=== PATIENT | female | born 2005 | race Caucasian/White ===

== ENCOUNTER 2024-12-12 18:17 | Emergency (ER) | payer OTHER, SELFPAY ==
[2024-12-12 18:25] VITALS: BP 117/75; PULSE 69; RESP 18; TEMP 36.7; O2SAT 98; BMI 25.7
--- NOTE | 2024-12-12 18:30 | DI.RAD.S_ITS ---
PROCEDURE: XR RIBS LT MIN 3V W CXR1V INDICATIONS: fall, rib pain with inspiration TECHNIQUE: 2 views of the ribs were acquired, along with a single view chest. COMPARISON: None. FINDINGS: Surgical changes and devices: None. Bones and chest wall: No fractures or dislocations. No suspicious bony lesions. Overlying soft tissues appear unremarkable. Lungs and pleura: No pleural effusions or pneumothorax. Lungs appear clear. Mediastinum: Mediastinal contours appear normal. Heart size is normal. IMPRESSION: No displaced rib fracture or pneumothorax. Dictated by: Kina Gore M.D. on 12/12/2024 at 20:02 Approved by: Kina Gore M.D. on 12/12/2024 at 20:03
--- NOTE | 2024-12-12 19:57 | ED.FALL ---
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 No bruising recalled, no scratches or abrasions or lacerations. No nausea or vomiting. No painful or frequent urination, no dark or bloody urination. Denies fevers or chills. Denies shortness of breath. She has tried some ibuprofen that seems helpful but does not last very long. Related Data Home Medications Medication Instructions Recorded Confirmed No Known Home Medications 09/29/24 09/29/24 Allergies Allergy/AdvReac Type Severity Reaction Status Date / Time ibuprofen Allergy Verified 12/12/24 18:25 Patient History Social History Smoking Status: Never smoker Smoking Status: Never smoker Exam Narrative Exam Narrative: GENERAL: Well-developed patient, in mild distress. HEAD: Atraumatic. Normocephalic. EYES: Pupils equal round and reactive. Extraocular motions intact. No scleral icterus. No injection or drainage. ENT: Nose without bleeding, purulent drainage. Throat without erythema, tonsillar hypertrophy or exudate. Airway patent. NECK: Trachea midline. Non tender CARDIOVASCULAR: Regular rate and rhythm without murmurs, gallops, or rubs. RESPIRATORY: Left lateral mild tenderness mid axillary line ribs, no crepitance or bruising or abrasion changes to the skin. Clear to auscultation. Breath sounds equal bilaterally. No wheezes, rales, or rhonchi. Speaks in full sentences, no respiratory distress. GASTROINTESTINAL: Abdomen soft, non-tender, nondistended. EXTREMITIES: No edema or joint tenderness. No tenderness to right shoulder or left shoulder, along biceps grew anterior deltoid, lateral deltoid, trapezius, AC joint. BACK: Nontender without deformity or crepitance. No flank tenderness. NEURO: AOx3. Motor functions grossly nonfocal SKIN: No rash or erythema of visible areas Initial Vital Signs Initial Vital Signs: Vital Signs Temperature 98.0 F 12/12/24 18:25 Pulse Rate 69 05/11/25 18:25 Respiratory Rate 18 12/12/24 18:25 Blood Pressure 117/75 12/12/24 18:25 Pulse Oximetry 98 12/12/24 18:25 Oxygen Delivery Method Room Air 12/12/24 18:25 Course Orders Ordered: ED Orders 12/12/24 18:30 XR ribs LT min 3V w CXR1V Stat Discontinued Medications Albuterol (Albuterol Hfa Prepack) 1 box MISC DIRECTED ONE Stop: 12/12/24 20:12 Last Admin: 12/12/24 20:22 Dose: 1 box Documented By: NATHALIA Tramadol HCl (Tramadol 50 Mg Prepack) 1 bottle MISC DIRECTED ONE Stop: 12/12/24 20:13 Last Admin: 12/12/24 20:22 Dose: 1 bottle Documented By: NATHALIA Vital Signs Vital signs: Vital Signs - 8 hr 12/12/24 18:25 12/12/24 20:34 Temperature 98.0 F Pulse Rate 69 58 L Respiratory Rate 18 14 Blood Pressure 117/75 102/66 Pulse Oximetry 98 100 Oxygen Delivery Method Room Air Room Air MDM - Fall Imaging Data Chest x-ray: Radiologist's Impression: [place] [address] XRay Report Signed Patient: Anni Stanton MR#: [id number] : 2005 Acct:[id number] Age/Sex: 19 / F Date of Service: 12/12/24 Loc: ED Accession Number: [id number] Procedure: XR ribs LT min 3V w CXR1V Ordering Provider: James Li MD PROCEDURE: XR RIBS LT MIN 3V W CXR1V INDICATIONS: fall, rib pain with inspiration TECHNIQUE: 2 views of the ribs were acquired, along with a single view chest. COMPARISON: None. FINDINGS: Surgical changes and devices: None. Bones and chest wall: No fractures or dislocations. No suspicious bony lesions. Overlying soft tissues appear unremarkable. Lungs and pleura: No pleural effusions or pneumothorax. Lungs appear clear. Mediastinum: Mediastinal contours appear normal. Heart size is normal. IMPRESSION: No displaced rib fracture or pneumothorax. Dictated by: Kina Gore M.D. on 12/12/2024 at 20:02 Approved by: Kina Gore M.D. 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 Persisting left lateral chest pain worse with inspiration. Screening x-rays ordered. X-ray chest with lateral left rib series, no obvious chest injuries, no obvious rib fractures. See radiology report. We discussed splenic injury or subdiaphragmatic injury, mechanism does not seem severe enough, advanced abdominal imaging held for now. Patient in agreement. Patient has been taking ibuprofen. Gave tramadol home pack. Incentive spirometer with deep inspiration atelectasis prevention, discussed rationale for use. Dispensed inhaler with spacer, 2 puffs 4 times daily for the next week and then as needed. Consider recheck of lungs with regular doctor this next week if symptoms persist. Return precautions discussed. Discharged home. Discharge Plan Departure Patient Disposition: Home Clinical Impression: Chest wall contusion Activity Restrictions/Additional Instructions: Left lateral chest wall contusion after having been run into by a glass laminating operator at a game 4 days ago. Persistent left lateral pain. Some tenderness on examination but no crepitance, with equal active breath sounds, no subcutaneous emphysema on palpation. No respiratory distress. Normal vitals. Chest x-ray with left rib series negative for obvious fracture or lung injury patterns. We discussed advanced imaging of the abdomen such as CT to look for splenic injuries or other injuries, not indicated at this time but could consider if symptoms worsen or persist. Dispensed inhaler with spacer to use, 2 puffs 4 times daily for this next week and then as needed. To help keep lungs expanded. Also to keep lungs expanded in context of chest wall injury, incentive spirometer to use 4 times daily. Dispensed by respiratory therapy with instruction. Recheck lungs advised if you are still having pain this next week. Return earlier to this/nearest emergency department for any change worsening symptoms or any concerns prior. Take ibuprofen as needed for pain control. Home pack of tramadol also provided, if you need additional pain relief. Prescriptions: No Action No Known Home Medications Referrals: Miscellaneous,[facility] [Primary Care Provider] - Stand Alone Forms: Patient Portal/API/Survey
[2024-12-12] MEDS: ALBUTEROL HFA PREPACK 1 BOX MISC (20:22)
[2024-12-12] MEDS: TRAMADOL 50 MG PREPACK 1 BOTTLE MISC (20:22)
[2024-12-12 20:34] VITALS: BP 102/66; PULSE 58; RESP 14; O2SAT 100
== END 2024-12-12 20:35 | disposition home or self-care (01) ==
PROVIDERS: Emergency Provider Emergency Medicine
DX: S20.212A Contusion of left front wall of thorax, initial encounter (principal); W50.0XXA Accidental hit or strike by another person, initial encounter
CPT/HCPCS: 71101; 99281; 99283